=== PATIENT | female | born 1940 | race Caucasian/White ===

== ENCOUNTER 2023-05-29 08:40 | Emergency (ER) | payer MEDICARE, SELFPAY ==
[2023-05-29 08:41] VITALS: BP 133/74
--- NOTE | 2023-05-29 08:52 | ED.GENMED ---
History of Present Illness
General
Chief Complaint: Fall
Time Seen by Provider: 05/29/23 08:52
Travel History
Have you had any contact with someone who has COVID-19?: No
Do you have any symptoms of coronavirus? Fever > 100 degrees, chills, cough, shortness of breath, sore throat, loss of taste or smell, muscle aches, or headache?: No
History of Present Illness
History of Present Illness:
HPI: Patient came in by car from home after falling off a chair 2 days ago. Her cat was on the refrigerator and the patient got up on a chair and fell. She has ongoing low back pain. She did not strike her head and is not on anticoagulation. Her
friend drove her here from home.
EXAM:
GENERAL: Well appearing in no distress
HEENT: Moist oral mucosa
CARDIOVASCULAR: 2 out of 6 systolic murmur heard in the upper sternal borders, normal heart rate and rhythm, No chest wall tenderness
PULMONARY: No respiratory distress, breath sounds are clear and equal
ABDOMEN: Soft with no peritoneal signs, no tenderness
NEUROLOGIC: Excellent strength all extremities, no coordination deficits
PSYCHIATRIC: Appropriate mental status, normal insight and judgement
EXTREMITIES: Nontender, no edema, moves all extremities equally
BACK: There is mild lower lumbar midline tenderness along with some sacral tenderness but with good active range of motion of the lower extremities
SKIN: No rash, no lesions
ED COURSE:
9 AM: I initially evaluated patient
NUMBER AND COMPLEXITY OF PROBLEMS ADDRESSED AT THE ENCOUNTER
� Chronic conditions affecting care: Diabetes, A-fib, high blood pressure
� Acute Exacerbation and/or Progression of Chronic Illness: This is an acute problem
� Differential Diagnosis includes: Lumbosacral fracture, pelvis fracture, lumbosacral contusion/sprain
AMOUNT AND/OR COMPLEXITY OF DATA TO BE REVIEWED AND ANALYZED
� I performed an independent evaluation of and my interpretation is:
EKG:
CT: CT imaging personally reviewed and shows no sign of fracture but does show degenerative changes
X-rays:
Laboratory Studies:
Other:
� Review of other/old records: The patient was hyperglycemic in January 2003
� Clinical information was obtained by an independent historian: I spoke to friend at bedside
� Prescriptions/Medications Considered but not given:
� Further testing considered but not performed:
RISK OF COMPLICATIONS AND/OR MORBIDITY OR MORTALITY OF PATIENT MANAGEMENT
� Social determinants of health affecting care: Lives at home
� Discussion with other providers:
� Escalation of care including admission/observation vs risk of discharge considered: Given patient's advanced age with fall from height, CT imaging is obtained. CT imaging shows no sign of fracture. The patient appears very
comfortable at time of discharge. Recommend Tylenol for pain.
Past History
Past History
ED Past Medical History: NIDDM
Social History
Tobacco: Non-smoker
Alcohol: None
Drug: None
Living: alone
Phy Exam
Physical Exam
Physical Exam:
See HPI
Course
Orders/Labs/Results
Orders:
Orders
05/29/23 08:57
CT Pelvis W/o Iv Contrast Urgent
Comment:
Reason For Exam: fall from height lumbosacral pain
05/29/23 09:00
CT Lumbar Spine W/o Iv Contras Urgent
Comment:
Reason For Exam: fall from height lumbosacral pain
Vital Signs
Initial and Last Documented VS:
Initial Vital Signs
Temp Pulse Resp BP Pulse Ox
99.1 F 77 16 133/74 98
05/29/23 08:41 05/29/23 08:41 05/29/23 08:41 05/29/23 08:41 05/29/23 08:41
Last Documented Vital Signs
Temp Pulse Resp BP Pulse Ox
99.1 F 77 16 103/71 98
05/29/23 08:41 03/05/24 08:41 05/29/23 08:41 05/29/23 09:24 05/29/23 09:25
*Critical Care Note
Total Time (30-74mins, 75-104mins- exclusive of procedures): Not Applicable
ED Attending Note
-
Portions of this chart may have been created with voice recognition software.� Occasional wrong word or��sound alike� substitutions may have occurred due to the inherent limitations of voice recognition software.
Discharge Plan
Departure
Patient Disposition: Home (Routine Discharge)
Date of Disposition: 05/29/23
Time of Disposition: 10:51
Patient with high blood pressure during this ER visit?: Yes
Discharge Problem:
Contusion of sacral region
Instructions: Contusion (DC)
Prescriptions:
No Action
metformin 500 mg tablet
500 mg PO BID Qty: 60 0RF
Referrals:
Prakash Chang DO [Family Provider] -
Activity Restrictions/Additional Instructions:
The CAT scan of the lumbar spine and the CAT scan of the pelvis showed degenerative changes but no sign of an acute fracture. Tylenol would be safest for pain. Return here if worse.
Interventions
Interventions:
*Risk Screen - Suicide Last Done: 05/29/23 08:41
*General Assessment Last Done: 05/29/23 08:41
*Neglect/Abuse Screening Last Done: 05/29/23 08:41
ED- Fall Risk Assessment Last Done: 05/29/23 09:21
*ED COVID-19 Vaccine History Last Done: 05/29/23 09:21
ED-Musculoskeletal Assessment Last Done: 05/29/23 09:21
ED- Neurological Assessment Last Done: 05/29/23 09:21
ED-Skin Assessment Last Done: 05/29/23 09:21
[2023-05-29 09:21] VITALS: BMI 20.9
[2023-05-29 09:24] VITALS: BP 103/71
== END 2023-05-29 11:06 | disposition home or self-care (01) ==
LOC: EMR 08:40
PROVIDERS: EMERGENCY PHYSICIAN Emergency Medicine; FAMILY PHYSICIAN Family Medicine
DX: S30.0XXA Contusion of lower back and pelvis, initial encounter (principal); W07.XXXA Fall from chair, initial encounter; M54.50 Low back pain, unspecified; E11.9 Type 2 diabetes mellitus without complications; I48.91 Unspecified atrial fibrillation
CPT/HCPCS: 99284; 72131; 72192